=== PATIENT | male | born 1980 | race African-American/Black ===

== ENCOUNTER 2017-06-15 12:48 | Emergency (ER) | payer SELFPAY ==
[2017-06-15 13:12] VITALS: BP 140/78; PULSE 59; RESP 17; TEMP 98.2
--- NOTE | 2017-06-15 13:31 | ED ---
General Adult HPI - General Chief complaint: Extremity Injury, Upper Stated complaint: Fall-Shoulder Pain Time Seen by Provider: 06/15/17 13:10 Source: patient, RN notes reviewed Mode of arrival: ambulatory Limitations: no limitations - History of Present Illness Initial comments: 36 -year-old male presents emergency Department chief complaint of left shoulder pain. Patient fell landing onto his left shoulder. Patient states that this happens about a week ago. He states that he's resting is no posterior certain movements cause More shoulder pain. There is no numbness and tingling. He did not hit his head he did not pass out with the incident. There 's been no fever or chills. They were concerned due to his continued pain so they thought that he should be seen.Patient denies any recent fever, chills, shortness of breath, chest pain, back pain, abdominal pain, nausea vomiting, numbness or tingling, dysuria or hematuria, constipation or diarrhea, headaches or visual changes, or any other current symptoms. - Related Data Allergies Allergy/AdvReac Type Severity Reaction Status Date / Time No Known Allergies Allergy Verified 06/15/17 13:09 Review of Systems ROS Statement: Those systems with pertinent positive or pertinent negative responses have been documented in the HPI. ROS Other: All systems not noted in ROS Statement are negative. Past Medical History Past Medical History: Asthma History of Any Multi-Drug Resistant Organisms: None Reported Past Surgical History: No Surgical Hx Reported Past Psychological History: No Psychological Hx Reported Smoking Status: Never smoker Past Alcohol Use History: None Reported Past Drug Use History: None Reported General Exam - General Exam Comments Initial Comments: General: The patient is awake and alert, in no distress, and does not appear acutely ill. Neck: The neck is supple, there is no tenderness. Cardiovascular: There is a regular rate and rhythm. No murmur, rub or gallop is appreciated. Respiratory: Lungs are clear to auscultation, respirations are non-labored, breath sounds are equal. No wheezes, stridor, rales, or rhonchi. Musculoskeletal: Sensation intact with 2+ pulses at the left upper x-ray. Fund motion of left elbow and left shoulder and neck. There is no point tenderness. Patient has 5 out of 5 muscle strength testing throughout. No obvious deformity noted. Neurological: CN II-XII intact, There are no obvious motor or sensory deficits. Coordination appears grossly intact. Speech is normal. Skin: Skin is warm and dry and no rashes or lesions are noted. Psychiatric: Normal mood and affect. Limitations: no limitations Course Vital Signs 06/15/17 13:09 Temperature 98.2 F Pulse Rate 59 L Respiratory 17 Rate Blood Pressure 140/78 O2 Sat by Pulse 100 Oximetry Medical Decision Making - Medical Decision Making 36-year-old male presents emergency 5 chief complaint of left shoulder pain after fall. This time x-rays been reviewed is negative. This time we discussed the left shoulder sprain. We discussed close follow-up with orthopedic we discussed Motrin Tylenol for pain and ice. We discussed return parameters and all questions. Patient stated that he understood and he is here this plan. All questions have been answered. He will be discharged. - Radiology Data Radiology results: report reviewed, image reviewed Disposition Clinical Impression: Sprain of left shoulder Disposition: HOME SELF-CARE Condition: Stable Instructions: Shoulder Sprain (ED) Additional Instructions: Please use medication as discussed. Please follow up with family doctor if symptoms have not improved over the next two days. Please return to the emergency room if your symptoms increase or worsen or for any other concerns. Referrals: Jonathan Avery MD [STAFF PHYSICIAN] - 1-2 days Time of Disposition: 13:46
--- NOTE | 2017-06-15 13:34 | XR ---
EXAMINATION TYPE: XR shoulder complete LT , 3 VIEWS DATE OF EXAM ORDERED: 06/15/2017 HISTORY: Pain. COMPARISON: None. FINDINGS: No fracture, dislocation or other acute osseous lesion is seen. IMPRESSION: NORMAL LEFT SHOULDER.
== END 2017-06-15 13:58 | disposition home or self-care (01) ==
LOC: EC 12:48
DX: S43.402A Unspecified sprain of left shoulder joint, initial encounter (principal); V00.221A Fall from sled, initial encounter; Y93.23 Activity, snow (alpine) (downhill) skiing, snowboarding, sledding, tobogganing and snow tubing
CPT/HCPCS: 99283